=== PATIENT | female | born 2000 | race Hispanic/Latino ===

== ENCOUNTER 2020-12-21 15:07 | Emergency (ER) | payer OTHER ==
--- OUTSIDE RECORDS SUMMARY | 2020-12-21 15:09 | XMS REPORT | Continuity of Care Document ---
:2000 Author Organization [facility] t Address [address] [place] [address] Care Team Providers Name Role Phone Unavailable Unavailable Unavailable Problems This patient has no known problems. Allergies, Adverse Reactions, Alerts This patient has no known allergies or adverse reactions. Medications This patient has no known medications. Procedures This patient has no known procedures. Results This patient has no known results.
[2020-12-21 16:53] LABS: Absolute Lymphocytes (CBC) 2.2 K/uL (0.7-4.9); Basophils % 0.2 % (0-1.3); Hematocrit 34.8 % (36.0-45.0); Lymphocytes % 18.6 % (15.3-44.8); RBC Red Blood Cell Count 3.94 M/uL (3.86-4.86)
[2020-12-21 17:07] LABS: BUN Blood Urea Nitrogen 9 mg/dL (7-18); Bicarbonate 23 mmol/L (21-32); Glucose Level 76 mg/dL (74-106); Potassium 3.8 mmol/L (3.5-5.1); Sodium Level 140 mmol/L (136-145)
[2020-12-21 17:24] LABS: HCG, Quantitative 13956 mIU/mL (1-3)
--- NOTE | 2020-12-21 18:12 | RAD REPORT ---
EXAM DESCRIPTION: US - OB Limited - 12/21/2020 5:50 pm CLINICAL HISTORY: Abd cramping, ;Vaginal bleeding COMPARISON: None FINDINGS: Single intrauterine gestation is identified. No gross anatomic abnormality identified. Hea rt rate averages 141 BPM. No amniotic fluid abnormality. A sentence shows no suspicious finding. No l ow-lying or placenta previa. Cervical canal assessment is limited but the internal os appears to be c losed. BPD, head circumference and limb measurements correspond to an 18 week 6 day age. Calculated E DD is 05/18/2021. Amniotic fluid volume is normal at 15.69 cm. No suspicion for adnexal abnormality. IMPRESSION: Single 18 week 6 day IUP with normal heart rate. No gross abnormality. Placenta, a mniotic fluid and cervical canal all appear to be normal.
--- NOTE | 2020-12-21 18:31 | EDPHYS ---
Physician Documentation [facility] Name: Anamaria Self Age: 20 yrs Sex: Female : 2000 Arrival Date: 12/21/2020 Time: 15:10 Bed 23 Private MD: AMOL Physician Marcel Brunner HPI: 12/21 18:08 This 20 yrs old Female presents to ER via Ambulatory with complaints of kb Vaginal Bleeding - 17 wks preg, Pelvic Pain. 18:08 The patient presents to the emergency department with abdominal pain, of the suprapubic kb area, described as crampy, vaginal bleeding, described as spotting. The estimated gestational age is 17 weeks. course: care: at a clinic, Leakage of Fluid: none appreciated, Ultrasound: the patient had an ultrasound. Previous pregnancies: in previous pregnancies patient has had. Associated signs and symptoms: Pertinent positives: abdominal pain, vaginal bleeding. The patient has not experienced similar symptoms in the past. 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 - Social history:: Smoking status: Patient denies any tobacco usage or history of. ROS: 18:07 Constitutional: Negative for fever, chills, and weight loss, Cardiovascular: Negative kb for chest pain, palpitations, and edema, Respiratory: Negative for shortness of breath, cough, wheezing, and pleuritic chest pain, MS/Extremity: Negative for injury and deformity, Skin: Negative for injury, rash, and discoloration, Neuro: Negative for headache, weakness, numbness, tingling, and seizure. 18:07 Abdomen/GI: Positive for abdominal cramps. 18:07 : Positive for vaginal bleeding. Exam: 18:07 Constitutional: This is a well developed, well nourished patient who is awake, alert, kb and in no acute distress. Head/Face: Normocephalic, atraumatic. Abdomen/GI: Soft, non-tender, with normal bowel sounds. No distension. No guarding or rebound. No evidence of tenderness throughout. Skin: Warm, dry with normal turgor. Normal color with no rashes, no lesions, and no evidence of cellulitis. MS/ Extremity: Pulses equal, no cyanosis. Neurovascular intact. Full, normal range of motion. Neuro: Awake and alert, GCS 15, oriented to person, place, time, and situation. Cranial nerves II-XII grossly intact. Moves all extremities. Sensory grossly intact. Cerebellar exam normal. Normal gait. 18:07 Respiratory: the patient does not display signs of respiratory distress, Respirations: normal. Vital Signs: 15:27 BP 132 / 82; Pulse 79; Resp 16; Temp 98.7; Pulse Ox 100% on R/A; iw 16:45 BP 101 / 60; Pulse 86; Resp 16 S; Pulse Ox 100% on R/A; ca1 17:50 BP 106 / 64; Pulse 89; Resp 16 S; Pulse Ox 100% on R/A; ca1 18:44 BP 102 / 62; Pulse 83; Resp 16 S; Pulse Ox 100% on R/A; ca1 MDM: 15:31 Patient medically screened. kb 18:06 Data reviewed: vital signs, nurses notes. Data interpreted: Pulse oximetry: on room air kb is 100 %. Interpretation: normal. Counseling: I had a detailed discussion with the patient and/or guardian regarding: the historical points, exam findings, and any diagnostic results supporting the discharge/admit diagnosis, lab results, radiology results, the need for outpatient follow up, an OB/Gyne specialist, to return to the emergency department if symptoms worsen or persist or if there are any questions or concerns that arise at home. 12/21 15:31 Order name: Quantitative Hcg kb 12/21 15:31 Order name: Abo/rh Typing; Complete Time: 18:29 kb 12/21 15:31 Order name: Basic Metabolic Panel; Complete Time: 17:28 kb 12/21 15:31 Order name: CBC with Diff; Complete Time: 16:59 kb 12/21 15:32 Order name: HCG, Quantitative; Complete Time: 17:28 EDMS 12/21 16:02 Order name: Urine Dipstick--Ancillary (enter results) eb 12/21 15:31 Order name: Urine Test (obtain specimen); Complete Time: 15:51 kb 12/21 15:31 Order name: IV Saline Lock; Complete Time: 16:00 kb 12/21 15:31 Order name: Labs collected and sent; Complete Time: 16:00 kb 12/21 15:31 Order name: NPO; Complete Time: 16:00 kb 12/21 15:31 Order name: Urine Dipstick-Ancillary (obtain specimen); Complete Time: 15:51 kb 12/21 16:02 Order name: Urine --Ancillary (enter results) eb 12/21 17:29 Order name: US OB Limited kb 12/21 18:12 Order name: US; Complete Time: 18:15 EDMS Administered Medications: No medications were administered Disposition: 12/22 09:05 Co-signature as Attending Physician, Marcel Brunner MD I agree with the assessment and darwin plan of care. Disposition: 12/21/20 18:30 Discharged to Home. Impression: 18 weeks gestation of , Threatened . - Condition is Stable. - Discharge Instructions: Threatened Miscarriage, [id number], Pelvic Rest, Vaginal Bleeding During , Second Trimester, [id number]. - Medication Reconciliation Form, Thank You Letter, Antibiotic Education, Prescription Opioid Use form. - Follow up: Emergency Department; When: As needed; Reason: Worsening of condition. Follow up: Private Physician; When: 2 - 3 days; Reason: Recheck today's complaints, Continuance of care, Re-evaluation by your physician. Signatures: Dispatcher [employer] EDFabi Gordon, SHAN-Martha TORREZ-Marcel Shipman MD MD cha Williams, Irene, KEYUR BAER iw Latoya Winkler RN RN ca1 Corrections: (The following items were deleted from the chart) 12/21 18:45 18:30 12/21/2020 18:30 Discharged to Home. Impression: 18 weeks gestation of ; ca1 Threatened . Condition is Stable. Forms are Medication Reconciliation Form, Thank You Letter, Antibiotic Education, Prescription Opioid Use. Follow up: Emergency Department; When: As needed; Reason: Worsening of condition. Follow up: Private Physician; When: 2 - 3 days; Reason: Recheck today's complaints, Continuance of care, Re-evaluation by your physician. kb
--- NOTE | 2020-12-21 18:31 | ER ---
Nurse's Notes [facility] Name: Anamaria Self Age: 20 yrs Sex: Female : 2000 Arrival Date: 12/21/2020 Time: 15:10 Bed 23 Private MD: Diagnosis: 18 weeks gestation of ;Threatened Presentation: 12/21 15:27 Chief complaint: Patient states: is about 17 weeks , started having bright red iw bleeding on Wednesday night, more than spotting , has not stopped spotting since then , feels pressure when she uses the restroom and cramping when she walks, had her first appointment with [facility] yesterday and the doctor didn;t give her any reason for the bleeding, G2, P0 previous miscarriage 3 years ago. Coronavirus screen: At this time, the client does not indicate any symptoms associated with coronavirus-19. Ebola Screen: Patient negative for fever greater than or equal to 101.5 degrees Fahrenheit, and additional compatible Ebola Virus Disease symptoms Patient denies exposure to infectious person. Patient denies travel to an Ebola-affected area in the 21 days before illness onset. No symptoms or risks identified at this time. Initial Sepsis Screen: Does the patient meet any 2 criteria? No. Patient's initial sepsis screen is negative. Does the patient have a suspected source of infection? No. Patient's initial sepsis screen is negative. Risk Assessment: Do you want to hurt yourself or someone else? Patient reports no desire to harm self or others. Onset of symptoms was December 17, 2020. 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 - Social history:: Smoking status: Patient denies any tobacco usage or history of. Screenin:45 Abuse screen: Denies threats or abuse. Denies injuries from another. Nutritional ca1 screening: No deficits noted. Tuberculosis screening: No symptoms or risk factors identified. Never had TB. Fall Risk None identified. Assessment: 15:45 General: Appears in no apparent distress. comfortable, Behavior is calm, cooperative, ca1 appropriate for age. Pain: Complains of pain in right lower quadrant and left lower quadrant Quality of pain is described as crampy, Pain began 2-3 days ago. Neuro: Level of Consciousness is awake, alert, obeys commands, Oriented to person, place, time, situation. GI: Abdomen is round non-distended, Bowel sounds present X 4 quads. Abd is soft and non tender X 4 quads. : Urine is clear, blood tinged, Reports vaginal bleeding that is brown, light flow, spotty, since Wednesday. Derm: Skin is intact, is healthy with good turgor, Skin is pink, warm \T\ dry. Musculoskeletal: Circulation, motion, and sensation intact. Capillary refill < 3 seconds. 16:50 Reassessment: Patient appears in no apparent distress at this time. Patient and/or ca1 family updated on plan of care and expected duration. Pain level reassessed. Patient is alert, oriented x 3, equal unlabored respirations, skin warm/dry/pink. 17:50 Reassessment: Patient appears in no apparent distress at this time. Patient and/or ca1 family updated on plan of care and expected duration. Pain level reassessed. Patient is alert, oriented x 3, equal unlabored respirations, skin warm/dry/pink. 18:44 Reassessment: Patient appears in no apparent distress at this time. Patient is alert, ca1 oriented x 3, equal unlabored respirations, skin warm/dry/pink. Vital Signs: 15:27 BP 132 / 82; Pulse 79; Resp 16; Temp 98.7; Pulse Ox 100% on R/A; iw 16:45 BP 101 / 60; Pulse 86; Resp 16 S; Pulse Ox 100% on R/A; ca1 17:50 BP 106 / 64; Pulse 89; Resp 16 S; Pulse Ox 100% on R/A; ca1 18:44 BP 102 / 62; Pulse 83; Resp 16 S; Pulse Ox 100% on R/A; ca1 ED Course: 15:10 Patient arrived in ED. as 15:15 Fabi Plasencia FNP-C is PHCP. kb 15:15 Marcel Brunner MD is Attending Physician. kb 15:30 Triage completed. iw 15:45 Patient has correct armband on for positive identification. Placed in gown. Bed in low ca1 position. Call light in reach. Side rails up X 1. Pulse ox on. NIBP on. Warm blanket given. 15:45 Arm band placed on right wrist. ca1 15:51 Latoya Winkler, RN is Primary Nurse. ca1 15:59 Initial lab(s) drawn, by me, sent to lab. Inserted saline lock: 20 gauge in right ca1 antecubital area, using aseptic technique. Blood collected. 18:45 No provider procedures requiring assistance completed. IV discontinued, intact, ca1 bleeding controlled, No redness/swelling at site. Pressure dressing applied. Administered Medications: No medications were administered Outcome: 18:30 Discharge ordered by . kb 18:45 Discharged to home ambulatory. ca1 18:45 Condition: stable 18:45 Discharge instructions given to patient, Instructed on discharge instructions, follow up and referral plans. Demonstrated understanding of instructions, follow-up care. 18:45 Patient left the ED. ca1 Signatures: Fabi Plasencia, CEO & FOUNDER-C CEO & FOUNDER-Ilsa Garcia as Tg Diaz, RN RN iw Latoya Winkler RN RN ca1
[2020-12-21 18:54] VITALS: TEMP 98.7; O2SAT 100
[2020-12-21 18:57] VITALS: BP 102/62
[2020-12-21 20:03] LABS: Urine Blood 2+ (NEG); Urine Glucose NEGATIVE (NEG); Urine Protein NEGATIVE (NEG); Urine Specific Gravity 1.025 (1.005-1.030)
== END 2020-12-21 18:45 | disposition home or self-care (01) ==
LOC: ER 15:07
DX: O20.0 Threatened abortion (principal); Z3A.18 18 weeks gestation of pregnancy
CPT/HCPCS: 36415; 76815; 80048; 81003; 81025; 84702; 85025; 86900; 86901; 99284